=== PATIENT | male | born 1935 | race Caucasian/White ===

== ENCOUNTER → 2019-05-22 | Outpatient (CLI) | payer MEDICARE ==
[2019-05-22 09:02] LABS: HCT 44.2 % (39.0-53.0); HGB 14.6 gm/dL (13.0-17.5); MCH 32.2 pg (25.0-35.0); MCHC 33.1 g/dL (31.0-37.0); MCV 97.2 fL (80.0-100.0); Mean Platelet Volume 7.9; Platelet Count 199 k/uL (150-450); RBC 4.55 m/uL (4.30-5.90); WBC 8.8 k/uL (3.8-10.6)
[2019-05-22 09:26] LABS: Potassium 4.3 mmol/L (3.5-5.1)
== END | disposition home or self-care (01) ==
LOC: LABPAT 08:31
PROVIDERS: ATTEND Internal Medicine Interventional Cardiology
DX: Z01.812 Encounter for preprocedural laboratory examination (principal); I49.5 Sick sinus syndrome
CPT/HCPCS: 36415; 80051; 82565; 84520; 85027

== ENCOUNTER → 2019-06-02 | Outpatient (CLI) | payer MEDICARE ==
[2019-06-02 23:25] LABS: African American GFR (CKD) 58.9 (60.0-200.0); Anion Gap 7.3 mmol/L (4.00-12.00); BUN/Creat Ratio 20.77 Ratio (12.00-20.00); Calcium 9.2 mg/dL (8.7-10.3); Carbon Dioxide 29.7 mmol/L (21.6-31.8); Non-African American GFR(CKD) 50.8 (60.0-200.0); Potassium 4.1 mmol/L (3.5-5.5)
== END | disposition home or self-care (01) ==
LOC: LABWHC1 16:35
PROVIDERS: ATTEND Internal Medicine Interventional Cardiology
DX: I10 Essential (primary) hypertension (principal); I25.10 Atherosclerotic heart disease of native coronary artery without angina pectoris
CPT/HCPCS: 36415; 80048

== ENCOUNTER → 2024-09-25 | Outpatient (CLI) | payer MEDICARE ==
--- NOTE | 2024-09-25 15:27 | CT ---
EXAMINATION TYPE: CT abdomen pelvis wo con DATE OF EXAM: 09/25/2024 COMPARISON: None CLINICAL INDICATION: Male, 89 years old with history of R14.0 ABDOMINAL DISTENSION (GASEOUS); PHH, ri ght side abdominal swelling at level of iliac crest TECHNIQUE: CT scan of the abdomen and pelvis is performed without oral or IV contrast. CT DLP: 691.[address] CTDI: mGy Automated exposure control for dose reduction was used. FINDINGS: Within the limitations of a non-contrast study, the following observations are made. There is mild to moderate reticulation and bronchiectasis in the lower lobes. There are 2 gallstones but no gallbladder wall thickening, distention or pericholecystic fluid. There is no biliary ductal dilatation. There is no organomegaly of the liver, pancreas, spleen or adrenal glands. There is a nonobstructing 5.7 mm right renal calcification. There is no left renal calcification or h ydronephrosis. The caliber of the abdominal aorta is normal and there is no retroperitoneal adenopathy or hemorrhage . The bowel loops are normal in caliber is no evidence of obstruction. No inflammatory changes are iden tified in the mesentery and there is no free intraperitoneal air or fluid. There is no pelvic mass, free fluid, abscess or adenopathy. There is a 3.3 cm fat-containing right in guinal hernia. There is mild prostatic hypertrophy with prostatic calcification. The osseous structures and soft tissues are unremarkable. IMPRESSION: 1. Chronic changes in the lung bases as described above. 2. Cholelithiasis. 3. Nonobstructing 5.7 mm right renal calcification facet hypertrophy 4. 3.3 cm fat-containing right inguinal hernia. 5. Mild prostatic hypertrophy. [facility], , 09/25/2024 3:25 PM
== END | disposition home or self-care (01) ==
LOC: RADCTMAIN 13:10
PROVIDERS: ATTEND Family Medicine
DX: K80.20 Calculus of gallbladder without cholecystitis without obstruction (principal); N28.89 Other specified disorders of kidney and ureter; K40.90 Unilateral inguinal hernia, without obstruction or gangrene, not specified as recurrent; N40.0 Benign prostatic hyperplasia without lower urinary tract symptoms; R14.0 Abdominal distension (gaseous)
CPT/HCPCS: 74176